=== PATIENT | male | born 1940 | race Caucasian/White ===

== ENCOUNTER 2025-02-11 12:40 | Emergency (ER) | payer BC, MEDICARE ==
[2025-02-11 14:00] LABS: #Basophils Less than 0.03 10x3/uL (0.0-0.2); #Eosinophils 0.11 10x3/uL (0.0-0.5); #Monocytes 0.47 10x3/uL (0.0-1.1); #Neutrophils 3.22 10x3/uL (1.5-8.4); %Basophils 0.4 % (0.0-2.0); %Eosinophils 2.3 % (0.0-6.0); %Lymphocytes 20.2 % (18.0-47.0); %Monocytes 9.8 % (0.0-10.0); %Neutrophils 66.9 % (40.0-75.0); Hematocrit 31.2 % (38.8-50.0); Hemoglobin 10.2 g/dL (13.5-17.5); Mean Corpuscular Hemoglobin 21.3 pg (27.0-33.0); Mean Corpuscular Volume 65.1 fL (81.2-95.1); Platelet Count 164 10x3/uL (150-450); Red Blood Cell (RBC) Count 4.79 10x6/uL (4.32-5.72); White Blood Cell (WBC) Count 4.81 10x3/uL (3.5-10.5)
[2025-02-11 14:08] LABS: ALT (SGPT) Less than 7 U/L (Less than 45); AST (SGOT) 25 U/L (11-34); Albumin 3.9 g/dL (3.1-4.5); Alkaline Phosphatase 38 U/L (40-110); Anion Gap 13 mmol/L (10-20); BUN (Urea Nitrogen) 24 mg/dL (8.4-25.7); Bilirubin, Total 0.5 mg/dL (0.3-1.2); CK (CPK) 27 U/L (30-200); Calc. Creatinine Clearance 0 mL/min (70-130); Calcium 9.0 mg/dL (7.8-10.44); Carbon Dioxide 22 mmol/L (23-31); Chloride 104 mmol/L (98-107); Globulin 2.6 g/dL (2.4-3.5); Glucose 185 mg/dL (83-110); Potassium 4.1 mmol/L (3.5-5.1); Sodium 135 mmol/L (136-145)
[2025-02-11 14:09] LABS: INR-International Normal Ratio 1.0; Prothrombin Time 11.3 sec (9.5-12.1)
[2025-02-11 14:13] LABS: Troponin I Less than 0.010 ng/mL (< 0.028)
[2025-02-11 14:24] LABS: Microcytosis SLIGHT = 6-15 cells (100X) (0-5/hpf)
[2025-02-11 14:28] LABS: PTT 21.3 sec (22.0-33.0)
== END 2025-02-11 15:32 | disposition home or self-care (01) ==
LOC: CSHERS 12:40
DX: S00.12XA Contusion of left eyelid and periocular area, initial encounter (principal); W18.30XA Fall on same level, unspecified, initial encounter; Z23 Encounter for immunization
CPT/HCPCS: 70450; 70486; 71045; 72125; 80053; 82550; 84484; 85025; 85610; 85730; 90471; 90715; 93005